=== PATIENT | male | born 1965 | race Asian ===

== ENCOUNTER 2020-09-20 14:56 | Inpatient (IN) | payer OTHER, SELFPAY ==
[~2020-09-20] VITALS: Ht 165.1 cm; Wt 88.5 kg
[2020-09-20 15:01] VITALS: Ht 165.1 cm; Wt 88.5 kg
--- NOTE | 2020-09-20 15:07 | NUR ---
PT C/O SOB, PRESENTS WITH ELEVATED RESP RATE OF 30, SHALLOW AND LABORED BREATHING, SpO2 AT 77% ON RA, PT PLACED ON O2 VIA NC AT 2L/min, SpO2 AT 88%, TITRATED UP TO 4L/min, SpO2 AT 94%, PT IN NO ACUTE DISTRESS AT THIS TIME, PT DENIES CP, N/V/D, PT AAO TO PERSON, PLACE, TIME, AND PURPOSE, PT IN TENT AWAITING MSE FROM HCP.
[2020-09-20 18:38] LABS: CALCIUM 9.1 mg/dL (8.5-10.1); CARBON DIOXIDE 27.8 mmol/L (21-32); CHLORIDE SERUM 95 mmol/L (98-107); CREATININE SERUM 0.8 mg/dL (0.7-1.3); GFR1 > 60 mL/min; GLUCOSE SERUM 160 mg/dL (74-106); POTASSIUM SERUM 3.4 mmol/L (3.5-5.1); SODIUM SERUM 133 mmol/L (136-145)
[2020-09-20 18:42] LABS: ALKALINE PHOSPHATASE 70 U/L (46-116); ALT/SGPT 31 U/L (16-63); AST/SGOT 33 U/L (15-37); BILIRUBIN TOTAL 0.47 mg/dL (0.20-1.00); C REACTIVE PROTEIN 11.7 mg/dL (<=0.9); LACTIC DEHYDROGENASE (LDH) 419 U/L (100-190)
[2020-09-20 18:43] LABS: ALBUMIN 3.2 g/dL (3.4-5.0); TOTAL PROTEIN, SERUM 8.5 g/dL (6.4-8.2)
[2020-09-20 18:52] LABS: BASOPHIL % 0.6 % (0.2-1.5); PLATELET COUNT 244 x10^3mcL (152-348)
[2020-09-20 18:54] LABS: RED CELL DISTRIBUTION WIDTH 20.3 % (12.1-16.2)
--- NOTE | 2020-09-20 19:43 | NUR ---
REPORT GIVEN TO NATE PARRA
[2020-09-20 20:37] LABS: microscopic required? YES; urine erythrocyte TRACE (NEGATIVE)
[2020-09-20 22:01] LABS: rbc morphology (normal/abnorm) ABNORMAL (NORMAL)
[2020-09-20 22:03] LABS: ovalocyte/elliptocyte 1+
[2020-09-20] MEDS ORDERED: ATORVASTATIN CA80 M1 PO (23:33)
[2020-09-20] MEDS ORDERED: PLA75 PO (23:34)
[2020-09-20] MEDS ORDERED: PANTOPRAZOLE SO40 M1 PO (23:34)
[2020-09-20] MEDS ORDERED: BUPROPION HYDR150 M1 PO (23:34)
[2020-09-20] MEDS ORDERED: TENORMIN25 MG PO (23:34)
[2020-09-20] MEDS ORDERED: METFORMIN HCL500 M4 PO (23:35)
[2020-09-20] MEDS ORDERED: GLIPIZIDE XL10 M1 PO (23:35)
[2020-09-20] MEDS ORDERED: HYDROCHLOROTHIA25 MG PO (23:36)
[2020-09-20] MEDS ORDERED: ASPIR 8181 MG PO (23:37)
[2020-09-20] MEDS ORDERED: HUMULIN N100 U/1 ML SC (23:37)
[2020-09-20] MEDS ORDERED: ZESTRIL5 MG PO (23:37)
[2020-09-21 00:49] VITALS: BP 120/72
--- NOTE | 2020-09-21 01:06 | NUR ---
RECEIVED PATIENT FROM ER IN BED, AA/O X4, DENIES PAIN, PRIMARY AYE RN AT BEDSIDE, PLACE T#58 NSR W/ HR 90 NOTED. SOB W/ EXERTION NOTED. INTERVIEW PATIENT AND UPDATE POC. INFORM PATIENT ISOLATE FOR DROPLET/COVID. DOCK MANAGER AT BEDSIDE OFFER GOWN TO PUT ON. CALL LIGHT WITHIN REACH. CARE ENDORSE TO AYE PARRA.
[2020-09-21 02:25] VITALS: BP 120/72
[2020-09-21 06:59] VITALS: BP 114/77
--- NOTE | 2020-09-21 07:09 | NUR ---
CALLED MD REGARDING BLOOD SUGAR CHECKS PATIENT IS DIABETIC.
--- NOTE | 2020-09-21 07:40 | NUR ---
RECIEVED PT FROM QUARRY SUPERVISOR DIMENSION STONE. ASSESSED AND DOCUMENTED. STABLE. DENIES ANY PAIN. NO SOB NOTED IN O2 N/C 3.5L, SPO2 95%. MILD SOB NOTED IN RA. SAFTEY PRECAUTIONS ARE IN PLACE. WILL MONITOR.
--- NOTE | 2020-09-21 13:00 | NUR ---
PT RESTING IN BED COMFORTABLY, EATING WELL. STABLE. SPO2 95% IN O2 3.5L. NO SOB NOTED. GAVE REPORT TO MANOMETER TECHNICIAN NURSE.
[2020-09-21 13:08] VITALS: BP 144/74
[2020-09-21 14:12] LABS: PLATELET COUNT 248 x10^3mcL (152-348)
[2020-09-21 14:34] LABS: RED CELL DISTRIBUTION WIDTH 20.7 % (12.1-16.2)
[2020-09-21 15:21] LABS: CALCIUM 9.6 mg/dL (8.5-10.1); CARBON DIOXIDE 23.9 mmol/L (21-32); CHLORIDE SERUM 100 mmol/L (98-107); CREATININE SERUM 0.6 mg/dL (0.7-1.3); GFR1 > 60 mL/min; GLUCOSE SERUM 261 mg/dL (74-106); POTASSIUM SERUM 4.2 mmol/L (3.5-5.1); SODIUM SERUM 134 mmol/L (136-145)
--- NOTE | 2020-09-21 16:00 | NUR ---
CALLED LAB FOR PLASMA, THEY SAID THEY DONOT HAVE AVAILABLE, THEY WILL ORDER AND INFORM WHEN IT AVAILABLE.
[2020-09-21 16:12] LABS: BAND NEUTROPHIL 0 % (0-10); BASOPHIL 0 % (0-2); MONOCYTE 14 % (0-7); SEGMENTED NEUTROPHILS 69 % (37-75); rbc morphology (normal/abnorm) ABNORMAL (NORMAL)
[2020-09-21 16:14] LABS: burr cell (echinocyte) 1+; ovalocyte/elliptocyte 2+
[2020-09-21 18:45] VITALS: BP 114/65
--- NOTE | 2020-09-21 19:00 | NUR ---
INFORMED AM TELE STRIP SHOWS SR WITH ST SEG DEPRESSED, DENIES CHEST PAIN. HE SAID TO KEEP TELE MONITOR AND HE WILL ORDER EKG. STABLE. SITTING UP IN THE BED. GAVE REPORT TO CROSSBAR FRAME WIRER NURSE.
--- NOTE | 2020-09-21 19:30 | NUR ---
RECEIVED PT FROM DAY SHIFT RN. PT A&OX4, DENIES CHEST PAIN OR DISCOMFORT. LUNG SOUNDS CLEAR BILATERALLY, PT CURRENT ON O2 4L W/NC, O2 SAT 95%, DENIES SOB. BOWEL SOUNDS ACTIVE AND ABDOMEN SOFT AND NONTENDER. SKIN WARM, DRY AND INTACT. IV SITE INTACT AND PATENT ON LEFT ARM. SAFETY MEASURES IN PLACE, CALL LIGHT WITHIN REACH. WILL CONTINUE TO MONITOR PT.
[2020-09-21 22:05] VITALS: BP 116/67
--- NOTE | 2020-09-22 00:15 | NUR ---
WASH OIL PUMP OPERATOR AT BEDSIDE TO DO EKG. PT CURRENT ON OXYGEN 4L W/NC, NO SOB NOTED. PT DENIES CHEST PAIN OR DISCOMFORT AT THIS TIME.
--- NOTE | 2020-09-22 03:00 | NUR ---
INTO CHECKED ON PT. PT RESTING IN BED. PT ON OXYGEN 4L W/NC. NO RESPIRATORY DISTRESS NOTED AT THIS TIME. CALL LIGHT WITHIN REACH.
[2020-09-22 05:34] VITALS: BP 101/55
--- NOTE | 2020-09-22 07:32 | NUR ---
RECEIVED PT FROM METAL FABRICATOR. ASSESSED AND DOCUMENTED. STABLE. DENIES PAIN THIS TIME. SAFTEY PRECAUTIONS ARE IN PLACE. WILL MONITOR.
--- NOTE | 2020-09-22 07:33 | NUR ---
PT RESTED WELL DURING SHIFT. NO ACUTE CHANGES NOTED. PT IS SITTING ON BED WATCHING TV AND NO DISTRESS NOTED. SAFETY MEASURES IN PLACE, CALL LIGHT WITHIN REACH. ALL CARE ENDORSED TO AM RN.
[2020-09-22 08:08] LABS: PLATELET COUNT 341 x10^3mcL (152-348)
[2020-09-22 08:10] LABS: BASOPHIL % 1.5 % (0.2-1.5)
[2020-09-22 08:28] LABS: BILIRUBIN DIRECT 0.12 mg/dL (0.0-0.2); BILIRUBIN TOTAL 0.4 mg/dL (0.20-1.00); TOTAL PROTEIN, SERUM 7.1 g/dL (6.4-8.2)
[2020-09-22 08:32] LABS: ALBUMIN 2.7 g/dL (3.4-5.0)
[2020-09-22 08:34] LABS: RED CELL DISTRIBUTION WIDTH 20.5 % (12.1-16.2)
[2020-09-22 08:46] LABS: CALCIUM 9.1 mg/dL (8.5-10.1); CARBON DIOXIDE 25.5 mmol/L (21-32); CHLORIDE SERUM 102 mmol/L (98-107); CREATININE SERUM 0.8 mg/dL (0.7-1.3); GFR1 > 60 mL/min; GLUCOSE SERUM 243 mg/dL (74-106); POTASSIUM SERUM 3.8 mmol/L (3.5-5.1); SODIUM SERUM 136 mmol/L (136-145)
[2020-09-22 09:43] VITALS: BP 110/62
[2020-09-22 11:40] LABS: rbc morphology (normal/abnorm) ABNORMAL (NORMAL)
--- NOTE | 2020-09-22 12:40 | NUR ---
PT SITTING UP IN THE CHAIR. EATING WELL. STABLE. NO SOB NOTED IN 4L N/C. WILL MONITOR.
[2020-09-22 13:47] VITALS: BP 93/41
[2020-09-22 17:06] VITALS: BP 113/69
--- NOTE | 2020-09-22 19:30 | NUR ---
PT REMAINS STABLE. NO SOB NOTED IN 4L N/C, 94%. GAVE REPORT TO MEAT CLERK NURSE.
--- NOTE | 2020-09-22 19:35 | NUR ---
RECEIVED PT FROM DAY SHIFT RN. PT A&OX4, PT DENIES CHEST PAIN OR CHEST DISCOMFORT AT THIS TIME. PT CURRENT ON OXYGEN 5L/NC, O2 SAT 97%. NO RESPIRATORY DISTRESS NOTED AT THIS TIME. SAFETY MEASURES IN PLACE, CALL LGITH WITHIN REACH. WILL CONTINUE TO MONITOR PT.
[2020-09-22 21:00] VITALS: BP 112/59
--- NOTE | 2020-09-22 21:12 | NUR ---
RECEIVED PT'S PHONE CALL. UPDATED PT CURRENT CONDTION AND SHE REQUESTED THAT HER NEEDS RESPIRATORY TREATMENT. SHE WILL CALL TOMORROW FOR FOLLOWING UP. TALKED TO RT RENETTA AND RT MADE AWARE OF RESPIRATROTY TREATMENT FOR PT NEEDED.
--- NOTE | 2020-09-23 03:02 | NUR ---
PHONED THE BLOOD BANK REGARDING FOR CONVALESCENT PLASMA. IT IS STILL NOT AVAILABLE FOR THIS TIME. THE LAB [facility] STATED THAT THEY WILL CALL BACK WHEN IT IS AVAILABLE.
[2020-09-23 06:20] VITALS: BP 124/72
[2020-09-23 07:40] LABS: BASOPHIL % 0.1 % (0.2-1.5); PLATELET COUNT 369 x10^3mcL (152-348)
[2020-09-23 08:12] LABS: CALCIUM 8.9 mg/dL (8.5-10.1); CARBON DIOXIDE 26.4 mmol/L (21-32); CHLORIDE SERUM 102 mmol/L (98-107); CREATININE SERUM 0.7 mg/dL (0.7-1.3); GFR1 > 60 mL/min; GLUCOSE SERUM 196 mg/dL (74-106); POTASSIUM SERUM 3.9 mmol/L (3.5-5.1); SODIUM SERUM 138 mmol/L (136-145)
--- NOTE | 2020-09-23 08:25 | NUR ---
REPORT GAVE TO AM RN. PT RESTED WELL DURING SHIFT. NO ACUTE CHANGES WITH CONDITION NOTED DURING SHIFT. SAFETY MEASURES IN PLACE, ALL CARE ENDORSED TO AM RN.
[2020-09-23 08:43] LABS: BILIRUBIN DIRECT 0.13 mg/dL (0.0-0.2); BILIRUBIN TOTAL 0.36 mg/dL (0.20-1.00); TOTAL PROTEIN, SERUM 7.5 g/dL (6.4-8.2)
[2020-09-23 08:51] VITALS: BP 143/68
--- NOTE | 2020-09-23 09:00 | NUR ---
PT REMAINS IN BED BREATHING TO 5L VIA NC. LUNG SOUNDS DIMISHED BASES, CLEAR LUNG APEXES. TELE#[id number] PRESENITNG WITH NSR. NO ACUTE DISTRESS, BED IN LOWEST POSITION CALL LIGHT IN REACH WILL CONTINUE TO MONITOR.
--- NOTE | 2020-09-23 10:00 | NUR ---
PATENT AMBULATING BRP WELL. REMINDED PATINET TO STOP DISCONNECTING NC O2 WHEN AMBULATING TO THE RESTROOM. PATIENT DENIES, DIZZINESS OR SOB WHEN WALKING. WILL CONTINUE TO MONITOR PATIENT
[2020-09-23 12:51] VITALS: BP 140/71
[2020-09-23 15:24] LABS: rbc morphology (normal/abnorm) ABNORMAL (NORMAL)
[2020-09-23 16:56] VITALS: BP 109/63
--- NOTE | 2020-09-23 19:00 | NUR ---
PATIENT REMAINS IN BED IV REMDESIIVR INFUSING WELL IN L-WRIST 20G WILL COMMUNICATE TO NIGHT NURSE TO DISCONTINUE IV REMDESIVIR. WILL ENDORSE TO NIGHT NURSE.
[2020-09-23 20:54] VITALS: BP 115/58
--- NOTE | 2020-09-24 00:52 | NUR ---
STARTED CONV PLASMA TRANSFUSION AT 2320. AFTER 15 MINS, VS STABLE. NO ACUTE RESP DISTRESS. AFEBRILE. ALL SAFETY PRECAUTIONS IN PLACE. WILL CONT TO MONITOR.
--- NOTE | 2020-09-24 02:03 | NUR ---
CONV PLASMA INFUSION COMPLETED. VS STABLE, AFEBRILE. NO ACUTE RESP DISTRESS NOTED. DENIES CP/PRESSURE. WILL CONT TO MONITOR.
[2020-09-24 05:45] VITALS: BP 144/76
--- NOTE | 2020-09-24 09:00 | NUR ---
RECIEVED PATIENT. PATIENT CURRENTLY IN BED BREATHING TO 5L VIA NC.SPO2 97%. NO ACUTE DISTRESS. LUNG SOUNDS DIMISHED BILATERAL. CHEST RISE AND FALL SYMMETRIC 20GIV L-WRIST CDI.BED IN LOWEST POSITION, CALL LIGHT IN REACH WILL CONTINUE TO MONITOR.
[2020-09-24 09:54] VITALS: BP 109/55
[2020-09-24 13:48] LABS: CALCIUM 9.3 mg/dL (8.5-10.1); CARBON DIOXIDE 26.2 mmol/L (21-32); CHLORIDE SERUM 96 mmol/L (98-107); CREATININE SERUM 0.8 mg/dL (0.7-1.3); GFR1 > 60 mL/min; GLUCOSE SERUM 259 mg/dL (74-106); POTASSIUM SERUM 3.5 mmol/L (3.5-5.1); SODIUM SERUM 133 mmol/L (136-145)
[2020-09-24 13:52] LABS: BILIRUBIN DIRECT 0.14 mg/dL (0.0-0.2); BILIRUBIN TOTAL 0.5 mg/dL (0.20-1.00); TOTAL PROTEIN, SERUM 7.6 g/dL (6.4-8.2)
[2020-09-24 13:55] LABS: BASOPHIL % 0.2 % (0.2-1.5)
[2020-09-24 13:59] LABS: ALBUMIN 3.1 g/dL (3.4-5.0)
[2020-09-24 14:11] LABS: PLATELET COUNT 486 x10^3mcL (152-348); RED CELL DISTRIBUTION WIDTH 20.6 % (12.1-16.2)
[2020-09-24 14:12] VITALS: BP 113/62
[2020-09-24 16:00] LABS: ovalocyte/elliptocyte 2+
--- NOTE | 2020-09-24 16:00 | NUR ---
PATIENT AMBULATING WELL TO RESTROOM, TITRATED O2 FROM 5L-2L O2 VIA NC. PATIENT TOLERATED TITRATION OF OXYGEN NO RESP DISTRESS.NO SOB. SPO2 96%. BED IN LOWEST POSITION, CALL LIGHT IN REACH WILL CONTINUE TO MONITOR.
[2020-09-24 16:01] LABS: rbc morphology (normal/abnorm) ABNORMAL (NORMAL)
[2020-09-24 16:44] VITALS: BP 109/59
--- NOTE | 2020-09-24 19:00 | NUR ---
PATIENT REMAINS IN BED REMDESIVIR INFUSING WELL. L-WRIST. BED IN LOWEST POSITION CALL LIGHT IN REACH. NO COMPLAINTS OR DISTRESS AT THIS TIME. WILL ENDORSE TO NIGHT NURSE.
[2020-09-24 20:48] VITALS: BP 117/59
[2020-09-25 05:43] VITALS: BP 113/60
--- NOTE | 2020-09-25 07:00 | NUR ---
PT RESTING COMFORTABLY IN BED. NO ACUTE RESP DISTRESS, ON 2L NC. DENIES ANY CP/PRESSURE. ALL NEEDS MET OVERNIGHT. WILL ENDORSE ALL CARE TO ONCOMING NURSE.
--- NOTE | 2020-09-25 09:00 | NUR ---
PATIENT RECIEVED, NO ACUTE DSITRESS WILL CONTINUE TO MONITOR
[2020-09-25 09:15] VITALS: BP 102/53
[2020-09-25 09:59] LABS: BILIRUBIN DIRECT 0.15 mg/dL (0.0-0.2); BILIRUBIN TOTAL 0.5 mg/dL (0.20-1.00); TOTAL PROTEIN, SERUM 7.3 g/dL (6.4-8.2)
[2020-09-25 10:06] LABS: ALBUMIN 3.2 g/dL (3.4-5.0)
[2020-09-25 10:09] LABS: CALCIUM 9.2 mg/dL (8.5-10.1); CARBON DIOXIDE 26.8 mmol/L (21-32); CHLORIDE SERUM 96 mmol/L (98-107); GLUCOSE SERUM 150 mg/dL (74-106); POTASSIUM SERUM 3.6 mmol/L (3.5-5.1); SODIUM SERUM 133 mmol/L (136-145)
[2020-09-25 10:11] LABS: BASOPHIL % 0.2 % (0.2-1.5)
[2020-09-25 10:34] LABS: RED CELL DISTRIBUTION WIDTH 21.7 % (12.1-16.2)
[2020-09-25 10:35] LABS: PLATELET COUNT 510 x10^3mcL (152-348)
[2020-09-25 10:37] LABS: CREATININE SERUM 0.7 mg/dL (0.7-1.3); GFR1 > 60 mL/min
[2020-09-25 10:40] LABS: MAGNESIUM 2.4 mg/dL (1.8-2.4); PHOSPHOROUS 3.6 mg/dL (2.5-4.9)
[2020-09-25 12:30] VITALS: BP 123/59
--- NOTE | 2020-09-25 15:00 | NUR ---
PATIENT RO SHANNON HOME O2 WILL UPDATE PATIENT APPROPRIATE
[2020-09-25 16:54] VITALS: BP 110/61
[2020-09-25 20:57] VITALS: BP 91/41
--- NOTE | 2020-09-25 21:17 | NUR ---
BED IN LOWEST POSITION CALL LIGHT IN REACH WILL ENDORSE TO NIGHT NURSE.
[2020-09-25 22:53] LABS: ovalocyte/elliptocyte 1+; rbc morphology (normal/abnorm) ABNORMAL (NORMAL)
--- NOTE | 2020-09-26 00:45 | NUR ---
PT SITTING AT BEDSIDE. NO ACUTE RESP DISTRESS NOTED, BREATHING EVEN AND UNLABORED ON 2L NC. DENIES CP/PRESSURE AT THIS TIME. BS+. VOIDS FREELY. AMBULATORY. ALL SAFETY PRECAUTIONS IN PLACE. WILL CONT TO MONITOR.
[2020-09-26 05:06] VITALS: BP 105/55
--- NOTE | 2020-09-26 06:51 | NUR ---
PT SITTING AT BEDSIDE. NO ACUTE RESP DISTRESS NOTED, BREATHING EVEN AND UNLABORED ON 2L NC. ALL PT NEEDS MET OVERNIGHT. ALL SAFETY PRECAUTIONS IN PLACE. WILL ENDORSE ALL CARE TO ONCOMING NURSE.
--- NOTE | 2020-09-26 08:00 | NUR ---
PATIENT IS CURRENTLY AWAKE ALERT AND ORIENTED X 4. PATIENT IS ON ISOLATION PRECAUTIONS DUE TO POSITIVE COVID 19 STATUS. PATIENT CURRENTLY ON ROOM AIR. NO REPORT OF SOB FROM THE PATIENT. PATIENT HAS COMPLETED COURSE OF REMDESIVIR THERAPY. NO PRESENCE OF DRY COUGH NOTED. PATIENT IS CURRENTLY AFEBRILE. SAFETY PRECAUTIONS IN PLACE. CALL LIGHT WITHIN REACH. WILL CONTINUE TO PROVIDE CARE FOR PATIENT.
[2020-09-26 08:44] LABS: CALCIUM 9.1 mg/dL (8.5-10.1); CARBON DIOXIDE 26.9 mmol/L (21-32); CHLORIDE SERUM 98 mmol/L (98-107); CREATININE SERUM 0.8 mg/dL (0.7-1.3); GFR1 > 60 mL/min; GLUCOSE SERUM 147 mg/dL (74-106); POTASSIUM SERUM 3.6 mmol/L (3.5-5.1); SODIUM SERUM 135 mmol/L (136-145)
[2020-09-26 08:55] LABS: BASOPHIL % 0.5 % (0.2-1.5)
[2020-09-26 09:30] VITALS: BP 119/70
[2020-09-26 11:49] LABS: RED CELL DISTRIBUTION WIDTH 21.3 % (12.1-16.2)
[2020-09-26 15:46] LABS: burr cell (echinocyte) 1+; ovalocyte/elliptocyte 1+; rbc morphology (normal/abnorm) ABNORMAL (NORMAL)
[2020-09-26 16:08] LABS: PLATELET COUNT 597 x10^3mcL (152-348)
[2020-09-26] MEDS ORDERED: DECADRON6 MG PO (18:00)
[2020-09-26] MEDS ORDERED: ELIQUIS2.5 MG PO (18:01)
[2020-09-26 18:29] VITALS: BP 133/70
--- NOTE | 2020-09-26 19:55 | NUR ---
PATIENT CURRENTLY ON ISOLATION PRECAUTIONS DUE TO POSITIVE COVID 19 STATUS. PATIENT IS CURRENTLY ON ROOM AIR. OXYGEN SATURATION IS AT 94% ON ROOM AIR. PATIENT DOES EXHIBIT SOB ON EXERTION. CURRENTLY PENDING HOME O2. PATIENT IS AWAKE ALERT AND ORIENTED X 4 AND HAS REMAINED AFEBRILE THROUGHOUT SHIFT. SAFETY PRECAUTIONS IN PLACE. CALL LIGHT WITHIN REACH. ALL FURTHER CARE ENDORSED TO [facility] NURSE.
[2020-09-26 21:29] VITALS: BP 105/61
--- NOTE | 2020-09-27 02:28 | NUR ---
LATE ENTRY - 1930 PT RECEIVED SITTING AT EDGE OF BED WATCHING TV. A/OX4, CALM AND COOPERATIVE. M/S. DENIES CHEST PAIN, DIZZINESS ADN LIGHTHEADEDNESS. RESPIRATIONS EVEN UNLABORED, RA, DENIES SOB AT REST, REPORTS SOB WITH EXERTION. BS ACTIVE, ABD SOFT AND ROUND, NON TENDER. DNEIES URINARY ISSUES. DENIES PAIN. A,BULATORY WITH STEADY GAIT. BED IN LOEWST POSITION, SIDE RAILS X2, CALL LIGHT WITHIN REACH
[2020-09-27 06:10] VITALS: BP 100/61
--- NOTE | 2020-09-27 08:00 | NUR ---
PATIENT SITTING IN BED ASKING WHEN HES GOING HOME. VS STABLE, NO C/O PAIN, SOB, OR OTHER DISCOMFORT JUST WANTS TO GO HOME.
[2020-09-27 09:59] VITALS: BP 89/50
--- NOTE | 2020-09-27 13:31 | NUR ---
NO ACCUCHECK AVAILABLE FOR THE PAST 2 HOURS. WILL MONITOR SOON CAN.
--- NOTE | 2020-09-27 16:26 | NUR ---
Initial Nutrition Assessment: [address] A ALLIE VITALE 55M MR Dx: COVID 19+, PNA PMHx: DM, HTN, CAD PSHx: CABG Labs: (09/27) no new labs reported * no HbA1C reported, no lipid panel reported (09/26) NA 135L, BG 147H, RBC 6.2H, HGB 11.6L, PLT 597H (09/25) ALB 3.2L, ALT 89H, ALK 65H, (09/20) LDH 419H, D-DIMER 529H, PCO2 32.4L, PO2 68.8L, HCO3 21.7L Meds: Humulin R, Lantus, Mucinex, Heparin, bupropion, Dexamethasone, atenolol, lisinopril, Plavix, Lipitor, Vitamin C, Zinc Sulfate, Hydrochlorothiazide, Vitamin D, Ventolin Diet: CCHO 60 g PO intake since admission: average 100% x 10 meals Ht: 165.1 cm/65 in Wt: 88.45 kg/195 lbs BMI: 32.4 kg/m2 Bed scale: unable to assess d/t isolation IBW: 62 kg/136 lbs %IBW: 143% ABW: 68.5 kg/150.7 lbs UBW: unknown Age: 55 y/o Food Allergies: unknown Edema: no noted Last BM: 09/26 Skin: intact Deniz: 22 Per H and P (09/20): Patient is a 55-year-old male with pmhx of htn, dm, CAD sp CABG x 3 who comes to the ED for complains of shortness of breath, fever and cough. Patient is here with his who is an RN. He reports that his got covid [address] and they were both tested positive last . He began to have symptoms the same day, initially it was just shortness of breath, but now its been progressively getting worse. His checked his pulse Ox and found him to be saturating at 75%, hence brought him to the ED. He also complains of having intermittend fevers and diarrhea for past 3 days. He denies any other symptoms, denies chest pain, nausea, vomit, abdominal pain or headaches. Pt was admitted with dx: Sepsis and Acute hypoxic respiratory failure 2/2 COVID 19 pneumonia, Hyponatremia, hx of DM, hx of CAD, Hx of HTN RD Note (09/27/20): Per progress note (09/27/20): Pt resting in bed NAD, saturating well this morning on room air. Understands plan of care with O2 at home. Unable to visit pt d/t COVID 19+ and unable to contact pt via pt's bedside phone. Per pt's RN, he has good appetite and eats 100% of his meals. No n/v/d/c reported per RN. No chewing/swallowing difficulties observed per RN. Last BM was yesterday per RN. Pt's meets 100% of his energy and protein needs with current PO intake. Additionally, per RN, pt has been d/c, but he is waiting for home oxygen. Problem with: N/V/D/C: none per RN Problems with: Chewing: Swallowing: none per RN Current appetite: good per RN Recent wt change: unknown %wt change: n/a Height: unknown Vitamin/Supplement use: unknown Special diet at home: unknown Physical activity: unknown Nutrition education given (specify specific nutrition education and handout given): Written education "Carbohydrate Counting for People with Diabetes," and "Diabetes Label Readings Tips" from [facility] was provided to pt via RN. Food-drug interactions? Education given? n/a Estimated Nutritional Needs Based on adjusted body weight (68.5 kg) Energy: 1712 - 2055 kcal/day (25 - 30 kcal/kg for viral infection and wt reduction) Protein: 82 - 103 g/day (1.2 - 1.5 g/kg for viral infection and wt reduction) Fluid: 1712 - 2055 mL/day (1 mL/kcal) Nutrition Diagnosis: 1. Increased energy and protein needs r/t viral infection a/e/b pt was admitted for COVID 19+. 2. Altered nutrition lab values r/t DM a/e/b BG 147 Intervention 1. Recommend continue with CCHO 60 g diet as tolerated. Monitor/Evaluate Goal: PO intake at least 75% of estimated needs Monitor: PO intake, Labs, GI function, Body Weight F/U in 3 - 5 days as moderate risk 09/30-
--- NOTE | 2020-09-27 16:27 | NUR ---
1. Recommend continue with CCHO 60 g diet as tolerated.
--- NOTE | 2020-09-27 18:54 | NUR ---
PATIENT WANTED TO SPEAK TO [employer] MECHANICAL. CALLED [employer] AND LEFT A VOICEMAIL STATING PATIENT WANTS TO SPEAK TO HER. PATIENT IS UPSET THAT HE IS STILL IN HOSPITAL. PATIENT REFUSED 1630 ACCUCHECK. WILL ENDORSE REPORT TO BERNA.
[2020-09-27 21:29] VITALS: BP 107/66
[2020-09-28 06:02] VITALS: BP 120/63
--- NOTE | 2020-09-28 06:53 | NUR ---
NO ACUTE CHANGES OVERNIGHT. PT REMAINS ON RA WITH NO RESPIRATORY DISTRESS NOTED OR REPORTED. NO C/O PAIN. PT PENDING HOME 02 DELIVERY. ALL NEEDS MET. BED IN LOWEST POSISTION, SIDE RAILS X 2, CALL LIGHT LENIN REACH
--- NOTE | 2020-09-28 08:15 | NUR ---
RECEIVED REPORT FROM SOCIAL SERVICE AGENCY DIRECTOR RN. PT SITTING UP IN BED AND ON HIS CELLPHONE. NO ACUTE DISTRESS NOTED AT THIS TIME. AAOX4. NO WILSON NOTED. DENIES ANY PAIN. IV SL, PATENT AND FLUSHING AT THIS TIME. ON RA, NO SOB OR COUGHING NOTED. RESPIRATIONS EVEN AND UNLABORED. BOWEL SOUNDS +, NO N/V/D NOTED. NO DYSURIA NOTED. ALL NEEDS ATTENDED. CALL LIGHT WITHIN REACH. BED IN L0WEST POSITION.
--- NOTE | 2020-09-28 08:18 | NUR ---
ATTEMPTED TO CALL CM TWICE ABOUT PTS HOME O2, BUT NO ANSWER. WILL ATTEMPT TO CALL AGAIN.
[2020-09-28 09:03] VITALS: BP 121/76
--- NOTE | 2020-09-28 11:16 | NUR ---
SPOKE TO DR. FISHER ON THE PHONE ABOUT CONFIRMING PTS DISCHARGE. DR. MOLINA UNAVAILABLE AT THIS TIME. STATED TO HOLD OFF ON THE DISCHARGE UNTIL SHE SPEAKS WITH DR. MOLINA.
[2020-09-28 11:31] VITALS: BP 121/76
[2020-09-28 12:52] VITALS: BP 128/69
--- NOTE | 2020-09-28 14:48 | NUR ---
PT DISCHARGED, AAOX4, NO ACUTE DISTRESS NOTED. ON RA, NO SOB NOTED. IV DC-ED INTACT AND PATENT. DISCHARGE EDUCATION AND DISCHARGE PAPERS SIGNED. ALL QUESTINS ASNWERED. PT ACCOMPANIED BY PUBLIC INFORMATION DIRECTOR TO LOBBY VIA WHEELCHAIR. PT PICKED UP BY GRANDDAUGHTER.
--- NOTE | 2020-09-28 16:12 | NUR ---
DIETITIAN CO-SIGN The Nutrition Notes documented by the [employer] Charcoal Burner have been reviewed. Reviewed/Co-Signed by: Praful Chan Documentation Done by: Aruna Coronado
[2020-09-28] MEDS ORDERED: ELIQUIS2.5 MG PO (21:34)
[2020-09-28] MEDS ORDERED: DECADRON6 MG PO (21:34)
== END 2020-09-28 13:18 | disposition home or self-care (01) | DRG 871 ==
LOC: ED 14:56 → DU 20:15 → MU 09-24 19:43
PROVIDERS: Emergency Medicine; Internal Medicine; ADMIT Family Medicine; ATTEND Family Medicine
PROC: XW033E5 Introduction of Remdesivir Anti-infective into Peripheral Vein, Percutaneous Approach, New Technology Group 5 (ICD-10-PCS; 2020-09-21)
PROC: XW13325 Transfusion of Convalescent Plasma (Nonautologous) into Peripheral Vein, Percutaneous Approach, New Technology Group 5 (ICD-10-PCS; principal; 2020-09-23)
DX: A41.89 Other specified sepsis (principal); U07.1 COVID-19; J12.82 Pneumonia due to coronavirus disease 2019; J96.01 Acute respiratory failure with hypoxia; E87.1 Hypo-osmolality and hyponatremia; I10 Essential (primary) hypertension; E11.9 Type 2 diabetes mellitus without complications; I25.10 Atherosclerotic heart disease of native coronary artery without angina pectoris; Z95.1 Presence of aortocoronary bypass graft; Z79.899 Other long term (current) drug therapy; Z79.82 Long term (current) use of aspirin; Z79.4 Long term (current) use of insulin
CPT/HCPCS: 36600; 82962; 83880; 85378; 87804; C9113; G0378; J0456; J0696; J1100; J1644; J1815; J3535; J7050; J7060; U0003